=== PATIENT | female | born 2000 | race Caucasian/White ===

== ENCOUNTER 2020-10-12 15:08 | Emergency (ER) | payer SELFPAY ==
[2020-10-12 15:16] VITALS: BP 101/59; PULSE 85; RESP 18; TEMP 37.1; O2SAT 99
--- NOTE | 2020-10-12 15:34 | ED.ABDPAIN ---
HPI - Abdominal Pain General Chief Complaint: Abdominal Pain Stated Complaint: abdominal pain, dizziness and light headed Time Seen by Provider: 10/12/20 15:30 Source: patient, family, RN notes reviewed and old records reviewed Mode of arrival: ambulatory Limitations: no limitations History of Present Illness HPI narrative: 20 year old female accompanied by sister who presents to express care with complaints of right and left lower abdominal pain but mainly to right lower quadrant of her abdomen which started today at 1300 with nausea and vomiting and intermittent sharp stabbing pain to her right abdomen. Patient states that she has had no acute diarrhea but stools have been softer and she has had 2 days of decrease in her appetite. Patient admits to being sexually active and not on any control with last menses September 25. MD elicited complaint: abdominal pain Pertinent past history: other Onset (ago): hour(s) (2) Pain Consistency: colicky Location: RLQ and LLQ Severity: moderate Pain scale (0-10): 6 Quality: stabbing and aching Radiation: none Migration to: no migration Exacerbating factors: nothing Relieving factors: nothing Associated symptoms: nausea and vomiting Treatments prior to arrival: other (one dose of Tylenol taken with no decrease of pain) Related Data Date of Last Menstrual Period: 09/25/20 Patient : No Home Medications Medication Instructions Recorded Confirmed No Home Medications 10/12/20 10/12/20 Allergies Allergy/AdvReac Type Severity Reaction Status Date / Time No Known Allergies Allergy Unverified 02/17/18 12:22 Review of Systems Review of Systems: Narrative: CONSTITUTIONAL: Denies any known fever, chills, or sweats. EYES: Denies visual changes, redness, or discharge. ENT: Denies rhinorrhea, congestion, sore throat, or otalgia. CARDIOVASCULAR: Denies chest pain, palpitations, or edema. RESPIRATORY: Denies cough or dyspnea. GASTROINTESTINAL: Positive left and right lower abdominal pain with most pain to the right lower abdominal area, positive for nausea, vomiting, no diarrhea. GENITOURINARY: Denies dysuria or hematuria. SKIN: Denies rash or itching. MUSCULOSKELETAL: Denies back pain, joint pain, or myalgia. NEUROLOGIC: Denies headache, numbness, or weakness. PSYCHIATRIC: Positive history of anxiety or depression. All systems reviewed & are unremarkable except as noted in HPI and below PMFSH Past Medical History Medical History (Updated 10/13/20 @ 00:00 by Lucretia Moon) Anxiety Humerus fracture Hx of migraines Strep pharyngitis Surgical History Surgical History (Updated 10/12/20 @ 16:48 by Bryanna Hunter NP) No history of previous surgery Family History Family History (Updated 10/13/20 @ 16:06 by Bryanna Hunter NP) Other No significant family history Social History Social History (Updated 10/13/20 @ 16:06 by Bryanna Hunter NP) Tobacco type: e-cigarettes/vaping Alcohol intake: current Alcohol use details: rare social Substance use: never Living arrangements: with family Gender identity (if verbalized by the patient): Female Comments At time of signature, agree with nursing past medical, surgical, social and family history. There is no relevant family history pertinent to the presenting complaint Exam Narrative: Exam Narrative: GENERAL: Well-appearing, well-nourished, and in mild acute distress.tearful HEAD: Normocephalic, atraumatic. EYES: PERRLA and EOMI. ENT: Nares clear, no rhinorrhea or epistaxis. Mucous membranes moist.TM's normal with good light reflex, throat pink with no lesions or exudates or tonsil enlargement. NECK: Supple.no lymphadenopathy CHEST: Clear to auscultation. No respiratory distress. SAO2 99% on room air HEART: Regular rate and rhythm. No murmur heard. Normal peripheral pulses. ABDOMEN: Soft,tender on palpation to lower abdomen with McBurney tenderness noted on right, no urinary symptoms reported, nondist
== END 2020-10-12 15:58 | disposition short-term general hospital (02) ==
PROVIDERS: Emergency Provider Registered Nurse; PCP Nurse Practitioner Family
DX: R10.31 Right lower quadrant pain (principal)
CPT/HCPCS: 81003; 99212; G0463

== ENCOUNTER 2022-03-02 11:03 | Emergency (ER) | payer OTHER, SELFPAY ==
[2022-03-02 11:12] VITALS: BP 134/69; PULSE 124; RESP 18; TEMP 36.9; O2SAT 99
--- NOTE | 2022-03-02 12:51 | ED.URI ---
HPI - URI/Sore Throat General Chief Complaint: Upper Respiratory Infection Stated Complaint: Congestion/Body Aches Time Seen by Provider: 03/02/22 12:51 Source: patient and RN notes reviewed Mode of arrival: ambulatory Limitations: no limitations History of Present Illness HPI Narrative: 21-year-old female presenting for complaint of Headache, body aches, sinus pressure/congestion, cough, fever/chills. Reports left ear pain and dizziness. Onset this morning. She also endorses 1 episode of emesis upon arrival to clinic. She endorses sick contacts. she took Tylenol for symptoms today. She denies shortness of breath, wheezing, diarrhea, fevers or chills. She is currently 19 weeks gestation, Patient denies any issues with her . MD elicited complaint: cough Related Data Home Medications Medication Instructions Recorded Confirmed 03/02/22 cholecalciferol (vitamin D3) 50 2,000 unit PO DAILY 03/02/22 03/02/22 mcg (2,000 unit) tablet (Vitamin D3) Allergies Allergy/AdvReac Type Severity Reaction Status Date / Time No Known Allergies Allergy Verified 03/02/22 12:04 Review of Systems Review of Systems: ROS per HPI [facility] Past Medical History Medical History Anxiety Humerus fracture Hx of migraines Strep pharyngitis Surgical History Surgical History No history of previous surgery Family History Family History Other No significant family history Social History Social History Tobacco type: e-cigarettes/vaping Alcohol intake: current Alcohol use details: rare social Substance use: never Gender identity (if verbalized by the patient): Female Exam Narrative: GENERAL: Ill-appearing, nontoxic EYES: PERRLA, conjunctivae clear ENT: Mucous membranes moist. TM pearly coyne with normal light reflex bilaterally; no tragal tenderness. Oropharynx erythematous without lesions or exudate, no drooling, no hoarseness, no trismus, uvula midline. NECK: Supple. No lymphadenopathy CHEST: Clear to auscultation, breath sounds equal. No respiratory distress, speaks in full sentences. HEART: Regular rate and rhythm. No murmur heard. SKIN: Warm, dry, no rash. NEURO: Alert and oriented x3. PSYCH: tearful Course Course Emergency Course: Patient is aware of diagnosis, understands and agrees to treatment plan. Anticipatory guidance given. Patient agrees to follow-up as directed and is aware of reasons to seek care at the emergency department. Portions of this record may have been created with voice recognition software Level of Care: Express Care Visit Vital Signs Vital signs: Vital Signs Temperature 98.4 F 03/02/22 11:12 Pulse Rate 124 H 03/02/22 11:12 Respiratory Rate 18 03/02/22 11:12 Blood Pressure 134/69 03/02/22 11:12 Pulse Oximetry 99 03/02/22 11:12 Oxygen Delivery Room Air 03/02/22 11:12 Temperature 98.4 F 03/02/22 11:12 Pulse Rate 124 H 03/02/22 11:12 Respiratory Rate 18 03/02/22 11:12 Blood Pressure 134/69 03/02/22 11:12 Pulse Oximetry 99 03/02/22 11:12 Oxygen Delivery Room Air 03/02/22 11:12 reviewed MDM - URI/Sore Throat MDM Narrative Medical decision making narrative: Due to lack of resources, unable to test for influenza at this time. Patient verbalizes understanding. Advised supportive measures and signs and symptoms to go to the ER. Patient is appropriate for outpatient treatment and follow-up. Differential Diagnosis Differential diagnosis: Likely upper respiratory infection, sinusitis and viral infection Discharge Plan Discharge Clinical Impression: Viral infection Patient Disposition: Home, Self-Care Condition: Stable Instructions: Influenza (ED) Additional Instruct
== END 2022-03-02 13:06 | disposition home or self-care (01) ==
PROVIDERS: Emergency Provider Nurse Practitioner Family
DX: B34.9 Viral infection, unspecified (principal); F17.290 Nicotine dependence, other tobacco product, uncomplicated
CPT/HCPCS: 99213; G0463